=== PATIENT | female | born 1950 | race Caucasian/White ===

== ENCOUNTER 2021-02-17 06:17 | Emergency (ER) | payer MEDICARE, OTHER ==
[2021-02-17] MEDS ORDERED: Doxycycline 100 MG Cap PO ONE (07:06)
--- NOTE | 2021-02-17 07:11 | EDM.PDOC ---
ED [facility] GENERAL MEDICAL PROBLEM - General Chief Complaint: Skin Complaint Stated Complaint: TICK BITE Time Seen by Provider: 02/17/21 06:46 - Related Data Allergies Allergy/AdvReac Type Severity Reaction Status Date / Time bee venom protein (honey bee) Allergy Airway Verified 02/17/21 06:46 Tightness Home Meds: Home Meds Doxycycline [Vibra-Tabs] 100 mg PO Q12HR 10 Days #20 tab 02/17/21 [Rx] Past Medical History - Past Health History Medical/Surgical History: Denies Medical/Surgical History Social & Family History - Tobacco Use Tobacco Use Status *Q: Never Tobacco User - Recreational Drug Use Recreational Drug Use: No ED ROS GENERAL - Review of Systems Review Of Systems: Comprehensive ROS is negative, except as noted in HPI. ED EXAM, SKIN/RASH Exam: See Below Text/Narrative:: My physical exam is in the HPI Course - Vital Signs Last Recorded V/S: Last Vital Signs Temp 35.9 C L 02/17/21 06:44 Pulse 71 02/17/21 06:44 Resp 20 02/17/21 06:44 BP 148/80 H 02/17/21 06:44 Pulse Ox 98 02/17/21 06:44 - Orders/Labs/Meds Meds: Medications Discontinued Medications Generic Name Dose Route Start Last Admin Trade Name Paul PRN Reason Stop Dose Admin Doxycycline Hyclate 200 mg 02/17/21 07:06 Doxycycline 100 Mg Cap PO 02/17/21 07:07 ONETIME ONE Departure - Departure Time of Disposition: 07:09 Disposition: Home, Self-Care 01 Condition: Good Clinical Impression: At high risk for tick borne illness, Tick bite, Skin rash - Discharge Information Prescriptions: Doxycycline [Vibra-Tabs] 100 mg PO Q12HR 10 Days #20 tab Instructions: Tick Bite Information, Adult, [id number] Referrals: PCP,Not In Area [Primary Care Provider] - Additional Instructions: The only pharmacy open in [place] is [facility] [place] from 12 noon to 5 PM today. Take your medicine twice a day and unless you have other symptoms are worsening you do not need to worry about this. Follow-up with primary care. You can continue your vacation. [facility] [address] [place] [id number] [facility] [address] [place] [address] The following information is given to patients seen in the emergency department who are being discharged to home. This information is to outline your options for follow-up care. We provide all patients seen in our emergency department with a follow-up referral. The need for follow-up, as well as the timing and circumstances, are variable depending upon the specifics of your emergency department visit. If you don't have a primary care physician on staff, we will provide you with a referral. We always advise you to contact your personal physician following an emergency department visit to inform them of the circumstance of the visit and for follow-up with them and/or the need for any referrals to a consulting specialist. The emergency department will also refer you to a specialist when appropriate. This referral assures that you have the opportunity for follow-up care with a specialist. All of these measure are taken in an effort to provide you with optimal care, which includes your follow-up. Under all circumstances we always encourage you to contact your private physician who remains a resource for coordinating your care. When calling for follow-up care, please make the office aware that this follow-up is from your r ecent emergency room visit. If for any reason you are refused follow-up, please contact the [facility] Emergency Department at and asked to speak to the emergency department charge nurse. Sepsis Event Note (ED) - Evaluation Sepsis Screening Result: No Definite Risk - Focused Exam Vital Signs: Vital Signs Temp Pulse Resp BP Pulse Ox 02/17/21 06:44 35.9 C L 71 20 148/80 H 98
== END 2021-02-17 07:19 | disposition home or self-care (01) ==
LOC: MW.ED 06:17
DX: S30.861A Insect bite (nonvenomous) of abdominal wall, initial encounter (principal); R21 Rash and other nonspecific skin eruption; Z91.030 Bee allergy status; W57.XXXA Bitten or stung by nonvenomous insect and other nonvenomous arthropods, initial encounter
CPT/HCPCS: 99282; A9270; 99283